=== PATIENT | male | born 1985 | race Two or more races ===

== ENCOUNTER 2018-11-05 03:08 | Emergency (ER) | payer OTHER ==
[~2018-11-05] VITALS: Ht 167.6 cm; Wt 83.9 kg
--- NOTE | 2018-11-05 03:15 | NUR ---
PT CAME TO EMERGENCY DEPT. COMPLAINING OF L THUMB LACERATION. PT WAS TAKING OUT TRASH WHEN HE GOT CUT BY A PEICE OF GLASS. PT [id number]. RESPIRATIONS EVEN AND UNLABORED. PT NOT BLEEDING AT THE MOMENT. PT PUT ON THE MONITOR AND PENDING EVAL FROM ER MD.
[2018-11-05] MEDS ORDERED: GELATIN SPONGE,ABSORBABLE 1 SPONGE SPONGE TP ONE (03:39)
[2018-11-05] MEDS ORDERED: TDAP [DIPH/PERTUSSIS/TET] 0.5 ML VIAL IM ONE (03:42)
[2018-11-05] MEDS ORDERED: CEPHALEXIN MONOHYDRATE 500 MG CAPSULE PO ONE (03:42)
[2018-11-05] MEDS: TDAP [DIPH/PERTUSSIS/TET] 0.5 ML VIAL IM ONE (03:45)
[2018-11-05] MEDS: CEPHALEXIN MONOHYDRATE 500 MG CAPSULE PO ONE (03:49)
[2018-11-05 03:58] VITALS: BP 166/55
== END 2018-11-05 03:59 | disposition home or self-care (01) ==
LOC: ER 03:17
DX: S61.402A Unspecified open wound of left hand, initial encounter (principal); I10 Essential (primary) hypertension; W25.XXXA Contact with sharp glass, initial encounter; Y93.89 Activity, other specified; Y92.89 Other specified places as the place of occurrence of the external cause; Y99.8 Other external cause status
CPT/HCPCS: 90471; 90715; 99283; A4606